=== PATIENT | female | born 1985 | race African-American/Black ===

== ENCOUNTER 2018-02-04 20:59 | Inpatient (IN) | payer OTHER ==
[~2018-02-04] VITALS: Ht 154.9 cm; Wt 51.0 kg
[~2018-02-04 20:59] MED LIST: KEPPRA500 MG PO; NOR10T; SOMA350 MG PO; XANAX0.25 MG PO
[2018-02-04 23:18] LABS: BASOPHIL % 1.5 % (0-2); PLATELET COUNT 328 x10^3mcL (130-400)
[2018-02-04 23:19] LABS: RED CELL DISTRIBUTION WIDTH 16.4 % (11.5-14.5)
[2018-02-04 23:25] LABS: CALCIUM 8.5 mg/dL (8.5-10.1); CARBON DIOXIDE 24.8 mmol/L (21-32); CHLORIDE SERUM 108 mmol/L (98-107); CREATININE SERUM 0.6 mg/dL (0.6-1.0); GFR1 > 60 mL/min; GLUCOSE SERUM 84 mg/dL (74-106); POTASSIUM SERUM 3.8 mmol/L (3.5-5.1); SODIUM SERUM 140 mmol/L (136-145)
[2018-02-04 23:30] LABS: ALKALINE PHOSPHATASE 98 U/L (46-116); ALT/SGPT 35 U/L (14-59); AST/SGOT 17 U/L (15-37); BILIRUBIN TOTAL 0.1 mg/dL (0.20-1.00); HDL CHOLESTEROL 45 mg/dL (40-60); LIPASE 102 IU/L (73-393); TOTAL PROTEIN, SERUM 6.4 g/dL (6.4-8.2); TRIGLYCERIDES 65 mg/dL (<150)
[2018-02-04 23:31] LABS: ALBUMIN 3.1 g/dL (3.4-5.0); CHOLESTEROL 119 mg/dL (<200); CHOLESTEROL/HDL RATIO 2.6
[2018-02-04 23:46] LABS: FREE T4 0.91 ng/dL (0.76-1.46)
[2018-02-04 23:57] LABS: FREE THYROXINE INDEX 1.5 ug/dL (1.4-4.5); T4(THYROXINE) 4.4 ug/dL (4.7-13.3)
[2018-02-05 00:42] LABS: T3 TOTAL 0.98 ng/mL
[2018-02-05 04:12] VITALS: BP 95/60
[2018-02-05 04:23] VITALS: BP 95/60
[2018-02-05 04:54] LABS: MAGNESIUM 2.2 mg/dL (1.8-2.4)
[2018-02-05] MEDS ORDERED: PROVENTIL0.09 MG/A1 (04:55)
[2018-02-05 09:28] VITALS: BP 113/73
[2018-02-05 14:17] VITALS: BP 121/87
[2018-02-05 16:37] VITALS: BP 105/76
[2018-02-05 20:03] VITALS: BP 110/76
[2018-02-06 04:55] VITALS: BP 96/69
[2018-02-06 06:40] LABS: CALCIUM 8.2 mg/dL (8.5-10.1); CARBON DIOXIDE 21.8 mmol/L (21-32); CHLORIDE SERUM 106 mmol/L (98-107); CREATININE SERUM 0.7 mg/dL (0.6-1.0); GFR1 > 60 mL/min; GLUCOSE SERUM 72 mg/dL (74-106); PHOSPHOROUS 4.2 mg/dL (2.5-4.9); POTASSIUM SERUM 3.8 mmol/L (3.5-5.1); SODIUM SERUM 137 mmol/L (136-145)
[2018-02-06 06:43] LABS: BASOPHIL % 0.8 % (0-2); PLATELET COUNT 299 x10^3mcL (130-400)
[2018-02-06 06:44] LABS: RED CELL DISTRIBUTION WIDTH 16.1 % (11.5-14.5)
[2018-02-06 09:16] VITALS: BP 96/53
[2018-02-06 11:58] VITALS: Ht 154.9 cm; Wt 51.0 kg
== END 2018-02-06 09:55 | disposition left against medical advice (07) | DRG 247 ==
LOC: ED 20:59 → DU 02-05 03:18
PROVIDERS: Family Medicine; Specialist
DX: K56.41 Fecal impaction (principal); E44.0 Moderate protein-calorie malnutrition; D70.9 Neutropenia, unspecified; E87.8 Other disorders of electrolyte and fluid balance, not elsewhere classified; K31.84 Gastroparesis; F17.210 Nicotine dependence, cigarettes, uncomplicated; G40.909 Epilepsy, unspecified, not intractable, without status epilepticus; D64.9 Anemia, unspecified; J45.909 Unspecified asthma, uncomplicated; Z88.8 Allergy status to other drugs, medicaments and biological substances; Z88.6 Allergy status to analgesic agent; Z68.1 Body mass index [BMI] 19.9 or less, adult
CPT/HCPCS: 83880; 84439; J1956; J2270; J2405; J3010; J3490; J7030; J7620; Q0092; Q0162; Q9967